=== PATIENT | female | born 1995 ===

== ENCOUNTER → 2024-02-04 | Outpatient (CLI) | payer SELFPAY ==
[2024-02-04 16:30] LABS: BASOPHILS ABSOLUTE AUTO 0.06 K/mm3 (0.00-0.23); BASOPHILS PERCENT AUTO 0 % (0-2); EOSINOPHILS ABSOLUTE AUTO 0.03 K/mm3 (0.00-0.68); EOSINOPHILS PERCENT AUTO 0 % (0-6); Hematocrit 41.5 % (33.0-51.0); Hemoglobin 14.2 g/dL (11.5-16.0); IMMATURE GRAN ABSOLUTE AUTO 0.06 K/mm3 (0.00-0.10); IMMATURE GRAN PERCENT AUTO 0 % (0-1); LYMPHOCYTES ABSOLUTE AUTO 1.78 K/mm3 (0.84-5.20); LYMPHOCYTES PERCENT AUTO 10 % (21-46); MONOCYTES PERCENT AUTO 5 % (4-13); Mean Corpuscular HGB 26.6 pg (26.0-34.0); Mean Corpuscular HGB Conc 34.2 g/dL (31.5-36.5); Mean Corpuscular Volume 78 fL (80-100); Mean Platelet Volume 8.8 fL (9.1-12.4); NEUTROPHILS PERCENT AUTO 84 % (41-73); Platelet Count 322 K/mm3 (150-400); RDW Coefficient Variation 13.8 % (11.7-14.2); RDW Standard Deviation 38.5 fL (35.1-46.3); Red Blood Cell Count 5.34 M/mm3 (3.80-5.20); White Blood Cell Count 17.33 K/mm3 (4.00-11.30)
== END | disposition home or self-care (01) ==
LOC: LAB 16:26 → LAB SHORT 16:26
PROVIDERS: Physician Assistant
DX: L05.01 Pilonidal cyst with abscess (principal); R50.9 Fever, unspecified
CPT/HCPCS: 85025; 87070; 87075; 87076; 87185; 87205

== ENCOUNTER → 2024-05-15 | Outpatient (CLI) | payer SELFPAY | END | disposition home or self-care (01) | LOC: LAB SHORT 15:11 → LAB 15:11 | DX: R05.9 Cough, unspecified (principal) | CPT/HCPCS: 85379 ==